=== PATIENT | male | born 1970 | race African-American/Black ===

== ENCOUNTER 2021-10-14 10:57 | Inpatient (IN) | payer OTHER, SELFPAY ==
[~2021-10-14 10:57] MED LIST: Iopamidol-370 76% 500 ML 1 ML ONE
[2021-10-14] MEDS ORDERED: Ondansetron PF 4 MG/2 ML Vial ONE (12:03)
[2021-10-14] MEDS ORDERED: Morphine 4 MG/ML VIAL ONE (12:03)
[2021-10-14 12:14] LABS: #Eosinphils 0.2 thou/uL (0.0-0.7); #Lymphocytes 1.7 thou/uL (1.20-3.40); #Monocytes 0.4 thou/uL (0.11-0.59); #Neutrophils 3.1 thou/uL (1.40-6.50); %Basophils 0.8 % (0.0-1.0); %Eosinophils 3.7 % (0.0-10.0); %Lymphocytes 30.9 % (21.0-51.0); %Monocytes 7.3 % (0.0-10.0); %Neutrophils 57.2 % (42.0-75.0); Hemoglobin 14.5 g/dL (14.0-18.0); Mean Corpuscular HGB CONC 32.2 g/dL (32.0-36.0); Mean Corpuscular Hemoglobin 28.3 pg (27.0-31.0); Mean Corpuscular Volume 88.1 fL (78.0-98.0); Mean Platelet Volume 7.2 fL (7.4-10.4); Platelet Count 286 thou/uL (130-400); RBC Distribution Width 13.4 % (11.5-14.5); Red Blood Cell (RBC) Count 5.12 mill/uL (4.70-6.10); White Blood Cell (WBC) Count 5.3 thou/uL (4.8-10.8)
[2021-10-14 12:52] LABS: ALT (SGPT) 19 U/L (8-55); AST (SGOT) 20 U/L (5-34); Albumin 3.9 g/dL (3.5-5.0); Alkaline Phosphatase 86 U/L (40-110); Anion Gap 17 mmol/L (10-20); BUN (Urea Nitrogen) 9 mg/dL (8.9-20.6); Bilirubin, Total 0.3 mg/dL (0.2-1.2); Calc. Creatinine Clearance 0 mL/min (70-130); Calcium 9.1 mg/dL (7.8-10.44); Carbon Dioxide 22 mmol/L (22-29); Chloride 104 mmol/L (98-107); Estimated GFR 107; Globulin 2.9 g/dL (2.4-3.5); Glucose 115 mg/dL (70-105); Lipase 21 U/L (8-78); Magnesium 2.1 mg/dL (1.6-2.6); Potassium 4.6 mmol/L (3.5-5.1); Protein, Total 6.8 g/dL (6.0-8.3); Sodium 138 mmol/L (136-145)
[2021-10-14] MEDS ORDERED: HYDROmorphone 0.5 MG/0.5 ML SYRINGE ONE ×2 (13:17→14:36)
[2021-10-14] MEDS ORDERED: Nitroglycerin 2% Ointment 1 INCH/1 GM Packet ONE (15:38)
[2021-10-14] MEDS ORDERED: hydrALAZINE 20 MG/ML VIAL SLOW IVP PRN (16:10)
[2021-10-14] MEDS ORDERED: Moisturizing Cream (Eucerin) 113 GM JAR TOP PRN (16:10)
[2021-10-14] MEDS ORDERED: Bisacodyl 5 MG TAB PO PRN (16:10)
[2021-10-14] MEDS ORDERED: Ondansetron ODT 4 MG TAB PO PRN (16:10)
[2021-10-14] MEDS ORDERED: Acetaminophen 650 MG Suppository PR PRN (16:10)
[2021-10-14] MEDS ORDERED: Senokot S 8.6-50 MG TAB PO PRN (16:10)
[2021-10-14] MEDS ORDERED: Labetalol HCl 100 MG/20 ML VIAL SLOW IVP PRN (16:10)
[2021-10-14] MEDS ORDERED: Ondansetron PF 4 MG/2 ML Vial IVP PRN (16:10)
[2021-10-14] MEDS ORDERED: Artificial Tear Sol 15 ML BOT EA EYE PRN (16:10)
[2021-10-14 16:36] LABS: Troponin I Less than 0.010 ng/mL (< 0.028)
[2021-10-14 17:05] VITALS: BMI 26.2
[2021-10-14 17:26] LABS: Complement-C4 23.7 mg/dL (15-53)
[2021-10-14] MEDS: cefTRIAXone\\ROCEPHIN 1 GM in Sodium Chloride 0.9% 100 ML IVPB SCH (17:28)
[2021-10-14] MEDS: Nicotine 14 MG PATCH TD SCH (17:29)
[2021-10-14] MEDS: HYDROcodone/Acetaminophen 5/325 mg Tablet PO PRN (17:34)
[2021-10-14 17:45] LABS: HIV (1/2) Antibody/Antigen Non-Reactive (NonReactive); HIV 1/2 INDEX 0.17 S/CO (<1.00)
[2021-10-14 17:51] LABS: Troponin I 0.031 ng/mL (< 0.028)
[2021-10-14] MEDS: Doxycycline 100 MG in Sodium Chloride 0.9% 100 ML IVPB SCH (18:09)
[2021-10-14] MEDS: Lactated Ringer's 1,000 ML IV SCH (18:22)
[2021-10-14] MEDS ORDERED: Famotidine 20 MG TAB PO SCH (21:00)
[2021-10-14] MEDS ORDERED: Morphine 2 MG/ML VIAL SLOW IVP SCH (21:45)
[2021-10-14 21:50] LABS: Troponin I Less than 0.010 ng/mL (< 0.028)
[2021-10-14] MEDS: diphenhydrAMINE 25 MG CAP PO PRN (22:06)
[2021-10-14] MEDS: Nitroglycerin 2% Ointment 1 INCH/1 GM Packet TOP SCH (22:14)
[2021-10-14 23:06] LABS: Bacteria/HPF None Seen HPF (None Seen); Bilirubin Negative (Negative); Blood, Urine Negative (Negative); Clarity Clear (Clear); Glucose, Urine (Dipstick) Normal (Negative); Ketone, Urine Negative (Negative); Leukocyte Negative Leu/uL (Negative); Nitrite Negative (Negative); Protein, Urine (Dipstick) Negative (Neg-Trace); RBC/HPF 0-3 HPF (0-3); Specific Gravity, Urine 1.047 (1.002-1.036); Squamous Epithelial None Seen HPF (0-3); Urobilinogen Normal mg/dL (Less than 2); WBC/HPF 0-3 HPF (0-3); pH, Urine 6.5 (5.0-9.0)
[2021-10-14 23:14] LABS: Amphetamine Not Detected (NotDetected); Barbiturates Screen Not Detected (NotDetected); Benzodiazepine Screen Detected (NotDetected); Cocaine Metabolite Screen Not Detected (NotDetected); Methadone Not Detected (NotDetected); Methamphetamine Not Detected (NotDetected); Opiate Screen Detected (NotDetected); Oxycodone Screen Detected (NotDetected); Phencyclidine (PCP) Not Detected (NotDetected); THC/Cannabinoid Screen Detected (NotDetected); Tricyclic Screen Detected (NotDetected)
[2021-10-14 23:20] LABS: Legionella Urinary Ag Negative (Negative)
[2021-10-15] MEDS: HYDROcodone/Acetaminophen 5/325 mg Tablet PO PRN (00:03)
[2021-10-15] MEDS: Lactated Ringer's 1,000 ML IV SCH ×3 (04:02→22:52)
[2021-10-15] MEDS ORDERED: Morphine 2 MG/ML VIAL SLOW IVP PRN (04:03)
[2021-10-15 04:28] LABS: #Eosinphils 0.3 thou/uL (0.0-0.7); #Lymphocytes 1.4 thou/uL (1.20-3.40); #Monocytes 0.4 thou/uL (0.11-0.59); #Neutrophils 2.9 thou/uL (1.40-6.50); %Basophils 0.5 % (0.0-1.0); %Lymphocytes 28.2 % (21.0-51.0); %Monocytes 7.1 % (0.0-10.0); %Neutrophils 58.2 % (42.0-75.0); Hemoglobin 13.7 g/dL (14.0-18.0); Mean Corpuscular HGB CONC 31.5 g/dL (32.0-36.0); Mean Corpuscular Hemoglobin 27.8 pg (27.0-31.0); Mean Corpuscular Volume 88.3 fL (78.0-98.0); Mean Platelet Volume 7.1 fL (7.4-10.4); Platelet Count 290 thou/uL (130-400); RBC Distribution Width 13.5 % (11.5-14.5); Red Blood Cell (RBC) Count 4.94 mill/uL (4.70-6.10)
[2021-10-15 04:55] LABS: ALT (SGPT) 15 U/L (8-55); AST (SGOT) 15 U/L (5-34); Albumin 3.5 g/dL (3.5-5.0); Alkaline Phosphatase 82 U/L (40-110); Anion Gap 12 mmol/L (10-20); BUN (Urea Nitrogen) 10 mg/dL (8.9-20.6); Bilirubin, Total 0.2 mg/dL (0.2-1.2); Calc. Creatinine Clearance 110 mL/min (70-130); Calcium 8.7 mg/dL (7.8-10.44); Carbon Dioxide 27 mmol/L (22-29); Chloride 105 mmol/L (98-107); Estimated GFR 105; Globulin 2.7 g/dL (2.4-3.5); Glucose 115 mg/dL (70-105); Potassium 4.2 mmol/L (3.5-5.1); Protein, Total 6.2 g/dL (6.0-8.3); Sodium 140 mmol/L (136-145)
[2021-10-15] MEDS: Doxycycline 100 MG in Sodium Chloride 0.9% 100 ML IVPB SCH ×2 (06:23→18:18)
[2021-10-15] MEDS: Nitroglycerin 2% Ointment 1 INCH/1 GM Packet TOP SCH ×3 (09:04→20:32)
[2021-10-15] MEDS: Amitriptyline HCl 25 MG TAB PO SCH (09:23)
[2021-10-15] MEDS: Morphine 2 MG/ML VIAL SLOW IVP PRN ×4 (10:25→22:52)
[2021-10-15] MEDS: cefTRIAXone\\ROCEPHIN 1 GM in Sodium Chloride 0.9% 100 ML IVPB SCH (17:45)
[2021-10-15] MEDS: Nicotine 14 MG PATCH TD SCH (18:09)
[2021-10-15] MEDS: Acetaminophen 325 MG TAB PO PRN (20:31)
[2021-10-15] MEDS: diphenhydrAMINE 25 MG CAP PO PRN (20:31)
[2021-10-16] MEDS: Morphine 2 MG/ML VIAL SLOW IVP PRN ×5 (03:06→22:10)
[2021-10-16] MEDS: Doxycycline 100 MG in Sodium Chloride 0.9% 100 ML IVPB SCH (05:24)
[2021-10-16] MEDS: Nitroglycerin 2% Ointment 1 INCH/1 GM Packet TOP SCH ×3 (07:29→20:48)
[2021-10-16] MEDS: Amitriptyline HCl 25 MG TAB PO SCH (08:33)
[2021-10-16] MEDS: Lactated Ringer's 1,000 ML IV SCH ×2 (09:36→13:23)
[2021-10-16] MEDS: Nicotine 14 MG PATCH TD SCH (17:57)
[2021-10-16] MEDS: cefTRIAXone\\ROCEPHIN 1 GM in Sodium Chloride 0.9% 100 ML IVPB SCH (18:03)
[2021-10-16] MEDS: Cefdinir 300 MG CAP PO SCH (20:47)
[2021-10-16] MEDS: diphenhydrAMINE 25 MG CAP PO PRN (20:47)
[2021-10-16] MEDS: Doxycycline 100 MG CAP PO SCH (20:47)
[2021-10-16] MEDS: Acetaminophen 325 MG TAB PO PRN (22:11)
[2021-10-17] MEDS: Morphine 2 MG/ML VIAL SLOW IVP PRN ×2 (02:39→06:32)
[2021-10-17] MEDS: Nitroglycerin 2% Ointment 1 INCH/1 GM Packet TOP SCH (06:36)
[2021-10-17] MEDS: Cefdinir 300 MG CAP PO SCH (10:05)
[2021-10-17] MEDS: Amitriptyline HCl 25 MG TAB PO SCH (10:06)
[2021-10-17] MEDS: Doxycycline 100 MG CAP PO SCH (10:06)
[2021-10-17 11:59] VITALS: BP 151/99; TEMP 98.1
[2021-10-17 19:13] LABS: Cytoplasmic (C-ANCA) <1:20 titer (Neg:<1:20); Myeloperoxidase AutoAbs <0.2 units (0.0-0.9); Perinuclear (P-ANCA) <1:20 titer (Neg:<1:20); Proteinase-3 AutoAbs Less than 0.2 units (0.0-0.9)
[2021-10-18 00:36] LABS: QuantiFERON-TB Gold Plus Indeterminate (Negative)
== END 2021-10-17 12:08 | disposition home or self-care (01) | DRG 194 ==
LOC: ERS 10:57 → 2NO 15:02
PROVIDERS: ADMIT Internal Medicine; ATTEND Internal Medicine
DX: J18.9 Pneumonia, unspecified organism (principal); R04.2 Hemoptysis; Z20.822 Contact with and (suspected) exposure to COVID-19; R55 Syncope and collapse; R91.8 Other nonspecific abnormal finding of lung field; I08.1 Rheumatic disorders of both mitral and tricuspid valves; I10 Essential (primary) hypertension; F10.10 Alcohol abuse, uncomplicated; N28.1 Cyst of kidney, acquired; K21.00 Gastro-esophageal reflux disease with esophagitis, without bleeding; Z88.6 Allergy status to analgesic agent; Z88.5 Allergy status to narcotic agent; Z87.11 Personal history of peptic ulcer disease; Z79.899 Other long term (current) drug therapy; Z90.49 Acquired absence of other specified parts of digestive tract; Z71.6 Tobacco abuse counseling
CPT/HCPCS: 36415; 71045; 71275; 74174; 80053; 80306; 81001; 83516; 83690; 83735; 84145; 84484; 85025; 85379; 86037; 86160; 86480; 87389; 87899; 93005; 93306; 93970; 94760; 96361; 96374; 96375; 96376; J0696; J1170; J2270; J2405; J3490; J7120; Q9967; U0003; U0005